=== PATIENT | male | born 1960 | race Caucasian/White ===

== ENCOUNTER 2017-12-27 17:27 | Emergency (ER) | payer BC, OTHER ==
--- NOTE | 2017-12-27 18:39 | EDM.PDOC ---
ED HPI GENERAL MEDICAL PROBLEM - General Chief Complaint: Flank Pain Stated Complaint: L SIDE ABD PAIN/FLANK PAIN Time Seen by Provider: 12/27/17 18:39 Source of Information: Reports: Patient History Limitations: Reports: No Limitations - History of Present Illness INITIAL COMMENTS - FREE TEXT/NARRATIVE: Patient has pain to the left CVA that has now radiated down to the left flank. States earlier today his urine was quite dark in color and has lightened up since. Pain has been steady at approximately 5 out of 10 with occasional worsening symptoms and intermittent nausea. States he just cannot get comfortable. He has had no emesis. He has no history kidney stones. There's been no emesis, diarrhea, dysuria, fever, chest pain, SOB, or any additional complaints. He has no additional past medical history. Takes no medications. NO hx of Abdominal surgery. PCP is Dr. Duff. Had a colonoscopy 1 year ago with no issues found. 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 [No Known Home Meds] 12/27/17 [History] Past Medical History - Past Surgical History HEENT Surgical History: Reports: Naso-Sinus Surgery Social & Family History - Tobacco Use Smoking Status *Q: Never Smoker - Caffeine Use Caffeine Use: Reports: Coffee, Soda, Tea - Recreational Drug Use Recreational Drug Use: No ED ROS GENERAL - Review of Systems Review Of Systems: ROS reveals no pertinent complaints other than HPI. ED EXAM, GI/ABD - Physical Exam Exam: See Below Exam Limited By: No Limitations General Appearance: Alert, WD/WN, No Apparent Distress Ears: Hearing Grossly Normal Nose: Normal Inspection Throat/Mouth: Normal Inspection, Normal Oropharynx, Normal Voice, No Airway Compromise Neck: Normal Inspection, Supple Respiratory/Chest: No Respiratory Distress, Lungs Clear, Normal Breath Sounds, No Accessory Muscle Use, Chest Non-Tender Cardiovascular: Normal Peripheral Pulses, Regular Rate, Rhythm GI/Abdominal Exam: Normal Bowel Sounds, Soft, No Organomegaly, No Distention, Tender (Mild tenderness noted left flank and left CVA.) Back Exam: Normal Inspection, CVA Tenderness (L). No: CVA Tenderness (R) Neurological: Alert, Oriented, CN II-XII Intact, Normal Cognition, No Motor/ Sensory Deficits Psychiatric: Normal Affect, Normal Mood Skin Exam: Warm, Dry, Intact, Normal Color, No Rash Course - Vital Signs Last Recorded V/S: Last Vital Signs Temp 97.9 F 12/27/17 17:48 Pulse 64 12/27/17 17:48 Resp 20 12/27/17 17:48 BP 154/98 H 12/27/17 17:48 Pulse Ox 94 L 12/27/17 17:48 - Orders/Labs/Meds Orders: Active Orders 24 hr Category Date Time Status Peripheral IV Care [RC] . DIRECTED Care 12/27/17 18:52 Active UA W/MICROSCOPIC [URIN] Stat Lab 12/27/17 18:10 Ordered Peripheral IV Insertion Adult [OM.PC] Routine Oth 12/27/17 18:51 Ordered Labs: Laboratory Tests 12/27/17 12/27/17 12/27/17 Range/Units 18:10 19:30 19:30 WBC 7.15 (4.23-9.07) K/mm3 RBC 5.05 (4.63-6.08) M/mm3 Hgb 15.3 (13.7-17.5) gm/L Hct 42.9 (40.1-51.0) % MCV 85.0 (79.0-92.2) fl MCH 30.3 (25.7-32.2) pg MCHC 35.7 H (32.2-35.5) g/dl RDW Std Deviation 36.2 (35.1-43.9) fL Plt Count 211 (163-337) K/mm3 MPV 10.6 (9.4-12.3) fl Neutrophils % (Manual) 80 H (40-60) % Band Neutrophils % 0 (0-10) % Lymphocytes % (Manual) 16 L (20-40) % Atypical Lymphs % 0 % Monocytes % (Manual) 3 (2-10) % Eosinophils % (Manual) 1 (0.8-7.0) % Basophils % (Manual) 0 L (0.2-1.2) Platelet Estimate Adequate RBC Morph Comment Normal Sodium 139 (136-145) mEq/L Potassium 4.0 (3.5-5.1) mEq/L Chloride 103 (98-107) mEq/L Carbon Dioxide 25 (21-32) mEq/L Anion Gap 15.0 (5-15) BUN 24 H (7-18) mg/dL Creatinine 1.3 (0.7-1.3) mg/dL Est Cr Clr Drug Dosing 68.38 mL/min Estimated GFR (MDRD) 57 (>60) mL/min BUN/Creatinine Ratio 18.5 H (14-18) Glucose 119 H (74-106) mg/dL Calcium 9.1 (8.5-10.1) mg/dL Total Bilirubin 0.4 (0.2-1.0) mg/dL AST 19 (15-37) U/L ALT 32 (16-63) U/L Alkaline Phosphatase 64 (46-116) U/L C-Reactive Protein < 0.2 (<1.0) mg/dL Total Protein 7.9 (6.4-8.2) g/dl Albumin 4.5 (3.4-5.0) g/dl Globulin 3.4 gm/dL Albumin/Globulin Ratio 1.3 (1-2) Urine Color Yellow (Yellow) Urine Appearance Clear (Clear) Urine pH 7.0 (5.0-8.0) Ur Specific [place] 1.020 (1.005-1.030) Urine Protein Negative (Negative) Urine Glucose (UA) Negative (Negative) Urine Ketones Negative (Negative) Urine Occult Blood Negative (Negative) Urine Nitrite Negative (Negative) Urine Bilirubin Negative (Negative) Urine Urobilinogen 0.2 (0.2-1.0) Ur Leukocyte Esterase Negative (Negative) Urine RBC 0-5 (0-5) /hpf Urine WBC 0-5 (0-5) /hpf Ur Epithelial Cells Not seen (0-5) /hpf Urine Bacteria Occasional (FEW) /hpf Urine Mucus Not seen (FEW) /hpf Meds: Medications Discontinued Medications Generic Name Dose Route Start Last Admin Trade Name Freq PRN Reason Stop Dose Admin Hydromorphone HCl 0.5 mg 12/27/17 18:51 12/27/17 19:35 Dilaudid IVPUSH 12/27/17 18:52 0.5 mg ONETIME ONE Administration Sodium Chloride 1,000 mls @ 250 mls/hr 12/27/17 19:00 12/27/17 19:34 Normal Saline IV 250 mls/hr ASDIRECTED JEREMY Administration Ketorolac Tromethamine 30 mg 12/27/17 18:53 12/27/17 19:37 Toradol IVPUSH 12/27/17 18:54 30 mg ONETIME ONE Administration Sodium Chloride 10 ml 12/27/17 18:51 12/27/17 19:36 Saline Flush FLUSH 10 ml ASDIRECTED PRN Administration Keep Vein Open Tamsulosin HCl 0.4 mg 12/27/17 18:51 12/27/17 19:36 Flomax PO 12/27/17 18:52 0.4 mg ONETIME ONE Administration - Re-Assessments/Exams Free Text/Narrative Re-Assessment/Exam: Patient in the E.D. for 1 hr and 10 minutes prior to examination. HPI and examination is concerning for kidney stone although he has no history of kidney stones. It appears the kidney stone maybe traveling downward with change pain location and severity. Discussed with him about obtaining a CT right away without contrast to evaluate for kidney stones. He agrees with plan. This will be conducted prior to lab results. I have ordered peripheral IV with normal saline IV fluids, Dilaudid 0.5 mg IVP, and Flomax 0.4 milligrams by mouth. Initial labs and studies include CBC, chem 14, CRP, UA, and CT the abdomen/ pelvis without contrast renal stone protocol. 12/27/17 20:30 Labs reviewed: CBC and chemistry panel were essentially normal. CRP less than 0.2. UA negative for any concerning findings. CT abdomen and pelvis impression: No renal calculi, ureteral dilatation or ureteral stone is present. No other incidental findings. Nothing acute is appreciated on noncontrast CT study of the abdomen and pelvis. Discussed results of the labs and CT study with patient. Unclear reason for pain. No rash present on examination suggesting shingles. No other concerning findings. Will discharge patient home with instructions as documented. Departure - Departure Time of Disposition: 20:49 Disposition: Home, Self-Care 01 Condition: Good Clinical Impression: Abdominal pain of unknown etiology - Discharge Information Instructions: Abdominal Pain, Adult, [id number] Referrals: Rush Greenwood MD [Primary Care Provider] - Forms: ED Department Discharge Additional Instructions: Unclear etiology of pain. Followup with PCP in the next week for reevaluation. Take ibuprofen and tylenol in alternating fashion for pain. Push the fluids. Return to the E.D. as needed for any new or worsening symptoms. - My Orders Last 24 Hours: My Active Orders 12/27/17 18:10 UA W/MICROSCOPIC [URIN] Stat 12/27/17 18:51 Peripheral IV Insertion Adult [OM.PC] Routine 12/27/17 18:52 Peripheral IV Care [RC] . DIRECTED - Assessment/Plan Last 24 Hours: My Active Orders 12/27/17 18:10 UA W/MICROSCOPIC [URIN] Stat 12/27/17 18:51 Peripheral IV Insertion Adult [OM.PC] Routine 12/27/17 18:52 Peripheral IV Care [RC] . DIRECTED
[2017-12-27] MEDS ORDERED: Tamsulosin 0.4 MG Cap.ER PO ONE (18:51)
[2017-12-27] MEDS ORDERED: Sodium Chloride 0.9% 10 ML Syringe FLUSH PRN (18:51)
[2017-12-27] MEDS ORDERED: HYDROmorphone 0.5 MG/0.5 ML SYRINGE IVPUSH ONE (18:51)
[2017-12-27] MEDS ORDERED: Ketorolac 30 MG/ML SDV IVPUSH ONE (18:53)
[2017-12-27] MEDS ORDERED: Sodium Chloride 0.9% 1,000 ML IV SCH (19:00)
--- NOTE | 2017-12-27 20:21 | CT ---
CT abdomen and pelvis Technique: Multiple axial sections were obtained from above the dome of the diaphragm inferiorly through the pubic symphysis. Intravenous and oral contrast was not utilized. Study has been performed as a ureteral stone protocol. Comparison: Prior contrast enhanced CT exam of 01/07/12. Findings: Small portion of the visualized lung bases shows nothing acute. Liver shows no focal parenchymal abnormality. Spleen appears within normal limits. Adrenal glands show no nodule. Pancreas appears within normal limits. Aorta shows no aneurysmal dilatation. No retroperitoneal adenopathy or mesenteric abnormalities are seen. Appendix is seen and is felt to be within normal limits. No pelvic mass or adenopathy is identified. Kidneys show no abnormal calcifications. No ureteral dilatation is seen. No calcifications are seen along the course of the ureters. Bone window settings were reviewed which shows disc space narrowing at L5-S1 with vacuum phenomena. Lesser disc space narrowing is scattered within the lower thoracic spine. Scattered endplate osteophytes are seen. Degenerative change is noted within the apophyseal joints within the lower lumbar spine. Impression: 1. No renal calculi, ureteral dilatation or ureteral stone is seen. 2. Other incidental findings. Nothing acute is appreciated on noncontrast CT study of the abdomen and pelvis. Diagnostic code #2
== END 2017-12-27 21:05 | disposition home or self-care (01) ==
LOC: JD.ED 17:27
DX: R10.9 Unspecified abdominal pain (principal)
CPT/HCPCS: 36415; 74176; 80053; 81001; 85025; 86140; 96361; 96374; 96375; 99284; A9270; J1170; J1885; J7040; J7050